=== PATIENT | female | born 1970 | race African-American/Black ===

== ENCOUNTER 2021-01-12 18:58 | Emergency (ER) | payer OTHER ==
[~2021-01-12] VITALS: Ht 167.6 cm; Wt 63.5 kg
[2021-01-12 21:48] LABS: Basophils # (auto) 0.1 10 ^3/uL (0-0.2); Basophils % (auto) 1.1 % (0.0-2.0); Eosinophils # (auto) 0.2 10 ^3/uL (0-0.8); Eosinophils % (auto) 2.6 % (0.0-7.0); Hematocrit 40.9 % (36.0-46.0); Hemoglobin 14.1 g/dL (12.2-16.2); Lymphocytes # (auto) 2.9 10 ^3/uL (0.4-5.4); Lymphocytes % (auto) 41.9 % (10.0-50.0); Mean Corpuscular Hemoglobin 31.1 pg (28.0-32.0); Mean Corpuscular Hgb Conc. 34.5 g/dL (32.0-36.0); Mean Corpuscular Volume 90.1 fL (80.0-100.0); Monocytes # (auto) 0.5 10 ^3/uL (0-1.3); Monocytes % (auto) 7.8 % (0.0-12.0); Neutrophils # (auto) 3.2 10 ^3/uL (1.6-8.6); Neutrophils % (auto) 46.6 % (37.0-80.0); Nucleated Red Blood Cells % 0.1 %; Red Blood Cells 4.54 10^6/uL (4.0-5.20); Red Cell Distribution Width 13.7 % (11.8-14.3); White Blood Cell 6.9 10^3/uL (4.4-10.8)
[2021-01-12 22:10] LABS: Albumin 3.9 g/dL (3.4-5.0); BUN/Creatinine Ratio 13.8; Calcium 8.4 mg/dL (8.5-10.1); Potassium 3.3 mmol/L (3.5-5.1)
[2021-01-12 22:21] LABS: Bilirubin, Total 0.2 mg/dL (0.2-1.0); Total Protein 8.6 g/dL (6.4-8.2)
[2021-01-12] MEDS ORDERED: PERCOT PO (23:33)
[2021-01-12] MEDS ORDERED: AZIT1POW12 PO (23:33)
[2021-01-12] MEDS ORDERED: PRED20TA2 PO (23:33)
[2021-01-12] MEDS ORDERED: ALBU108A5 IN (23:33)
[2021-01-13 00:45] VITALS: BP 166/70
== END 2021-01-13 00:50 | disposition home or self-care (01) ==
LOC: ER 18:59
DX: J40 Bronchitis, not specified as acute or chronic (principal)
CPT/HCPCS: 36415; 71045; 80053; 83880; 84484; 85025; 93005

== ENCOUNTER 2021-08-10 06:14 | Emergency (ER) | payer OTHER ==
[~2021-08-10] VITALS: Ht 167.6 cm; Wt 66.2 kg
[~2021-08-10 06:14] MED LIST: ALBU108A5 IN; AZIT1POW12 PO; PERCOT PO; PRED20TA2 PO
[2021-08-10 08:27] LABS: Basophils # (auto) 0 10 ^3/uL (0-0.2); Basophils % (auto) 0.9 % (0.0-2.0); Eosinophils # (auto) 0.4 10 ^3/uL (0-0.8); Eosinophils % (auto) 7.5 % (0.0-7.0); Hematocrit 37.4 % (36.0-46.0); Hemoglobin 12.7 g/dL (12.2-16.2); Lymphocytes # (auto) 2.4 10 ^3/uL (0.4-5.4); Lymphocytes % (auto) 45.6 % (10.0-50.0); Mean Corpuscular Hemoglobin 29.7 pg (28.0-32.0); Mean Corpuscular Hgb Conc. 34.1 g/dL (32.0-36.0); Mean Corpuscular Volume 87.3 fL (80.0-100.0); Monocytes # (auto) 0.5 10 ^3/uL (0-1.3); Monocytes % (auto) 9.8 % (0.0-12.0); Neutrophils # (auto) 1.9 10 ^3/uL (1.6-8.6); Neutrophils % (auto) 36.2 % (37.0-80.0); Nucleated Red Blood Cells % 0.1 %; Red Blood Cells 4.29 10^6/uL (4.0-5.20); White Blood Cell 5.2 10^3/uL (4.4-10.8)
[2021-08-10 08:31] LABS: Urine Bacteria NONE SEEN /hpf (None Seen); Urine Blood Negative /uL (Negative); Urine Mucus FEW (None Seen); Urine Specific Gravity 1.027 (1.001-1.035); Urine WBC 1 /hpf (0 - 5)
[2021-08-10 09:04] LABS: Albumin 3.7 g/dL (3.4-5.0); Potassium 3.2 mmol/L (3.5-5.1)
[2021-08-10 09:10] LABS: BUN/Creatinine Ratio 23.2; Bilirubin, Total 0.2 mg/dL (0.2-1.0); Total Protein 7.6 g/dL (6.4-8.2)
[2021-08-10 12:54] VITALS: BP 162/85
== END 2021-08-10 13:00 | disposition home or self-care (01) ==
LOC: ER 06:14
DX: M79.10 Myalgia, unspecified site (principal); M94.0 Chondrocostal junction syndrome [Tietze]; E87.6 Hypokalemia; Z90.710 Acquired absence of both cervix and uterus; Z79.2 Long term (current) use of antibiotics; Z79.899 Other long term (current) drug therapy
CPT/HCPCS: 36415; 80053; 81001; 84484; 85025